=== PATIENT | female | born 1990 | race Caucasian/White ===

== ENCOUNTER 2022-09-20 23:22 | Emergency (ER) | payer MEDICAID, OTHER ==
[~2022-09-20] VITALS: Ht 157.5 cm; Wt 54.4 kg
[2022-09-20] MEDS ORDERED: THIAMINE HCL 100 MG TABLET PO ONE (23:30)
[2022-09-20] MEDS ORDERED: IV NS 1000 ML 1,000 ML IV ONE (23:30)
[2022-09-20] MEDS ORDERED: THIAMINE HCL 100 MG TABLET ONE (23:32)
--- NOTE | 2022-09-20 23:48 | NUR ---
Patient currently refusing medications, saline lock and blood draws. Dr. Caridad branham.
[2022-09-21 03:10] LABS: HEMATOCRIT 38.9 % (31.2-41.9); MEAN CORPUSCULAR HEMOGLOBIN 25.3 uug (24.7-32.8); MEAN CORPUSCULAR VOLUME 79.4 fL (75.5-95.3); PLATELET COUNT (AUTO) 309 K/uL (179-408)
[2022-09-21 03:20] LABS: CREATININE 0.8 mg/dL (0.6-1.3); POTASSIUM 3.3 mmol/L (3.5-5.1)
[2022-09-21 03:26] LABS: BILIRUBIN,DIRECT 0.1 mg/dL (0.0-0.2); BILIRUBIN,TOTAL 0.5 mg/dL (0.2-1.0); TOTAL PROTEIN, SERUM 8.5 g/dL (6.4-8.2)
--- NOTE | 2022-09-21 04:31 | NUR ---
Patient does not wish to proceed with medical care recommended by Dr. Mclean. Patient given information related to possible complications, up to and including , which could occur as a result of leaving the hospital at this time. Patient verbalizes understanding of risks involved due to leaving against medical advice. Patient has signed AMA form.
[2022-09-21 04:44] VITALS: BP 131/85
== END 2022-09-21 04:46 | disposition left against medical advice (07) ==
LOC: ER 23:25
DX: F10.221 Alcohol dependence with intoxication delirium (principal); Y90.8 Blood alcohol level of 240 mg/100 ml or more; Z53.29 Procedure and treatment not carried out because of patient's decision for other reasons; R74.01 Elevation of levels of liver transaminase levels; Z88.0 Allergy status to penicillin
CPT/HCPCS: 36415; 83735; 85025; G0480; J7040

== ENCOUNTER 2024-01-12 21:53 | Emergency (ER) | payer MEDICAID ==
[~2024-01-12] VITALS: Ht 157.5 cm; Wt 59.0 kg
[2024-01-12 21:58] VITALS: O2SAT 96
[2024-01-12 22:27] LABS: BASOPHILS # (AUTO) 0.2 K/UL (0.0-0.2); EOSINOPHILS # (AUTO) 0.3 K/uL (0.0-0.7); EOSINOPHILS % (AUTO) 3.8 % (0.0-7.0); HEMATOCRIT 37.8 % (31.2-41.9); HEMOGLOBIN 12.5 g/dL (10.9-14.3); LYMPHOCYTES # (AUTO) 0.7 K/uL (0.8-4.8); LYMPHOCYTES % (AUTO) 11.3 % (20.5-51.5); MEAN CORPUSCULAR HEMOGLOBIN 28.6 uug (24.7-32.8); MEAN CORPUSCULAR HGB CONC 33 g/dL (32.3-35.6); MEAN CORPUSCULAR VOLUME 86.3 fL (75.5-95.3); MONOCYTES # (AUTO) 0.4 K/uL (0.1-1.30); MONOCYTES % (AUTO) 6.1 % (0.0-11.0); NEUTROPHILS % (AUTO) 75.8 % (38.5-71.5); PLATELET COUNT (AUTO) 306 K/uL (179-408); RED BLOOD CELL COUNT(AUTO) 4.38 MIL/uL (3.63-4.92); RED CELL DISTRIBUTION WIDTH 14.8 % (12.3-17.7); WHITE BLOOD COUNT (AUTO) 6.5 K/uL (3.8-11.8)
[2024-01-12 22:44] LABS: DIFFERENTIAL COMMENT 1
[2024-01-12 22:53] LABS: CALCIUM 8.6 mg/dL (8.5-10.1); CARBON DIOXIDE 26 mmol/L (21-32); CHLORIDE 106 mmol/L (98-107); GLUCOSE 89 mg/dL (74-106); POTASSIUM 3.6 mmol/L (3.5-5.1); SODIUM SERUM 145 mmol/L (136-145); UREA NITROGEN, BLOOD 7 mg/dL (7-18)
[2024-01-12 22:54] LABS: AMMONIA 20 umol/L (11-32); ETHANOL 266 MG/DL (0-10)
[2024-01-12 23:02] LABS: ALANINE AMINOTRANSFERASE 23 U/L (14-59); ALKALINE PHOSPHATASE 80 U/L (50-136); ASPARTATE AMINOTRANSFERASE 24 U/L (15-37); BILIRUBIN,DIRECT 0.2 mg/dL (0.0-0.2); BILIRUBIN,TOTAL 0.7 mg/dL (0.2-1.0); TOTAL PROTEIN, SERUM 8.2 g/dL (6.4-8.2)
[2024-01-12 23:10] LABS: ACETAMINOPHEN < 2.0 ug/mL (10-30)
== END 2024-01-12 22:33 | disposition left against medical advice (07) ==
LOC: ER 21:53 → EDBD 21:53 → ER 22:33
DX: F10.129 Alcohol abuse with intoxication, unspecified (principal); R06.02 Shortness of breath; Z88.0 Allergy status to penicillin; Y90.0 Blood alcohol level of less than 20 mg/100 ml
CPT/HCPCS: 36415; 84484; 85025; 85730; 93005; A4606; A4663; G0480